=== PATIENT | female | born 1980 | race Caucasian/White ===

== ENCOUNTER 2017-01-06 16:42 | Inpatient (IN) | payer BC, OTHER ==
[2017-01-07] MEDS ORDERED: KETOROLAC TROMETHAMINE 30 MG/ML SOL IV ONE (03:52)
[2017-01-07] MEDS ORDERED: METHYLERGONOVINE MALEATE 0.2 MG/ML SOL IM PRN (04:16)
[2017-01-07] MEDS ORDERED: CARBOPROST 250 MCG/ML SOL IM PRN (04:16)
[2017-01-07] MEDS ORDERED: OXYTOCIN 10000 MU/ML SOL IM PRN (04:16)
[2017-01-07] MEDS ORDERED: MISOPROSTOL 100 MCG TAB VAG PRN (04:19)
[2017-01-07] MEDS ORDERED: ONDANSETRON HCL 4 MG/2 ML SOL IV PRN (04:20)
[2017-01-07] MEDS ORDERED: ONDANSETRON HCL 4 MG/2 ML SOL ONE ×2 (04:27→13:30)
[2017-01-07] MEDS ORDERED: HYDROMORPHONE HCL 2 MG/ML SOL ONE ×4 (04:27→10:20)
[2017-01-07 04:29] LABS: BASOPHILS % (AUTO) 1 % (0-3); EOSINOPHILS % (AUTO) 1 % (0-9); HEMATOCRIT 34 % (35-47); MEAN CORPUSCULAR HGB CONC 33.8 gm/dl (32.0-36.0); MONOCYTES % (AUTO) 4.9 % (0-12); NEUTROPHILS % (AUTO) 84.1 % (37-80)
[2017-01-07 04:34] LABS: CALCIUM 8.4 mg/dl (8.5-10.1); POTASSIUM 3.6 mMol/L (3.5-5.1)
[2017-01-07 04:35] LABS: MEAN CORPUSCULAR VOLUME 78 fL (81-99)
[2017-01-07] MEDS: HYDROMORPHONE 1 MG/ML SYRINGE IV PRN ×3 (04:38→10:24)
[2017-01-07 05:15] LABS: ABO B; RH TYPE Negative
[2017-01-07 05:17] LABS: ANTIBODY SCREEN Negative
[2017-01-07] MEDS ORDERED: HYDROMORPHONE HCL 2 MG/ML SOL IV PRN (05:52)
[2017-01-07] MEDS: SODIUM CHLORIDE 0.9% FLUSH 10 ML SOL IV PRN ×3 (06:11→11:34)
[2017-01-07] MEDS ORDERED: MISOPROSTOL 100 MCG TAB PO PRN ×2 (08:03→09:20)
[2017-01-07] MEDS ORDERED: SODIUM CHLORIDE 0.9% 500 ML 500 ML IV SCH (10:45)
[2017-01-07] MEDS ORDERED: SODIUM CHLORIDE 0.9% 1000ML 1,000 ML IV SCH (11:15)
[2017-01-07] MEDS: FENTANYL 100MCG/2ML SOL IV PRN ×2 (11:31→12:11)
[2017-01-07] MEDS ORDERED: LIDOCAINE HCL 1% MPF SOL ONE (13:30)
[2017-01-07] MEDS ORDERED: FENTANYL 100MCG/2ML SOL ONE (13:30)
[2017-01-07] MEDS ORDERED: PROPOFOL 10 MG/ML EMU IV ONE (13:30)
[2017-01-07] MEDS ORDERED: MIDAZOLAM 2 MG/2 ML SOL ONE (13:36)
[2017-01-07] MEDS ORDERED: DEXAMETHASONE 20 MG/5 ML (4 MG/ML SOL) ONE (14:28)
[2017-01-07] MEDS ORDERED: METOCLOPRAMIDE HYDROCHLORIDE 5 MG/ML SOL ONE (14:28)
[2017-01-07 15:34] VITALS: RESP 16
[2017-01-07 16:59] VITALS: TEMP 97.3
[2017-01-07 18:43] VITALS: BP 134/80; PULSE 78; O2SAT 97
== END 2017-01-07 18:20 | disposition home or self-care (01) | DRG 770 ==
LOC: ED 16:42 → OB 01-07 03:20 → UNDOADMIN 01-07 03:20 → UNDODISIN 01-07 18:20
PROVIDERS: ADMIT Family Medicine; ATTEND Family Medicine
PROC: 3E0P7GC Introduction of Other Therapeutic Substance into Female Reproductive, Via Natural or Artificial Opening (ICD-10-PCS; 2017-01-07)
PROC: 3E033VJ Introduction of Other Hormone into Peripheral Vein, Percutaneous Approach (ICD-10-PCS; 2017-01-07)
PROC: 3E0334Z Introduction of Serum, Toxoid and Vaccine into Peripheral Vein, Percutaneous Approach (ICD-10-PCS; 2017-01-07)
PROC: 10D17ZZ Extraction of Products of Conception, Retained, Via Natural or Artificial Opening (ICD-10-PCS; principal; 2017-01-07 13:45)
DX: O02.1 Missed abortion (principal); O36.0920 Maternal care for other rhesus isoimmunization, second trimester, not applicable or unspecified
CPT/HCPCS: 36415; 80048; 85018; 85025; 86850; 86900; 86901; 99282; 99283; J0330; J1100; J1170; J1885; J2250; J2405; J2765; J3010; J2001; J2704

== ENCOUNTER 2018-03-04 05:37 | Inpatient (IN) | payer OTHER ==
[2018-03-04] MEDS ORDERED: CEFAZOLIN (PREMIX) 1 GM 1 GM/50 ML SOL IV SCH (05:45)
[2018-03-04] MEDS ORDERED: CITRIC ACID/SODIUM CITRATE SOL PO SCH (05:45)
[2018-03-04] MEDS: LACTATED RINGERS 1,000 ML IV SCH ×4 (06:00→16:31)
[2018-03-04] MEDS ORDERED: MORPHINE SULFATE 0.5 MG/ML SOL ONE (07:00)
[2018-03-04] MEDS ORDERED: OXYTOCIN 10000 MU/ML SOL ONE ×4 (07:57)
[2018-03-04] MEDS ORDERED: CEFAZOLIN SODIUM 1 GM PDS ONE ×2 (07:57→13:56)
[2018-03-04] MEDS ORDERED: LACTATED RINGERS 1,000 ML with OXYTOCIN 10000 MU/ML 20 MU IV ONE (08:00)
[2018-03-04] MEDS ORDERED: METHYLERGONOVINE MALEATE 0.2 MG TAB PO PRN (08:56)
[2018-03-04] MEDS ORDERED: ONDANSETRON HCL 4 MG/2 ML SOL IV PRN (08:56)
[2018-03-04] MEDS ORDERED: FLEET ENEMA PR PRN (08:56)
[2018-03-04] MEDS ORDERED: BISACODYL 10 MG SUP PR PRN (08:56)
[2018-03-04] MEDS ORDERED: TEMAZEPAM 15MG 15 MG CAP PO PRN (08:56)
[2018-03-04] MEDS ORDERED: WITCH HAZEL 1 EA PAD TOP PRN (08:56)
[2018-03-04] MEDS ORDERED: BENZOCAINE/MENTHOL 1 SPR TOP PRN (08:56)
[2018-03-04] MEDS: DIPHENHYDRAMINE 25 MG CAP PO PRN ×3 (10:08→17:15)
[2018-03-04] MEDS: DOCUSATE SODIUM 100 MG SGL PO SCH ×2 (10:12→21:16)
[2018-03-04] MEDS: MULTIVITAMIN2 1 EA TAB PO SCH (10:12)
[2018-03-04] MEDS: FOLIC ACID 1 MG TAB PO SCH (10:12)
[2018-03-04] MEDS: KETOROLAC TROMETHAMINE 30 MG/ML SOL IV PRN ×3 (11:00→23:40)
[2018-03-04] MEDS: SODIUM CHLORIDE 0.9% FLUSH 10 ML SOL IV SCH ×2 (11:01→16:32)
[2018-03-04] MEDS ORDERED: CEFAZOLIN SODIUM 1 GM PDS 1 GM in SODIUM CHLORIDE 0.9% 50 ML 50 ML IV SCH (13:30)
[2018-03-04] MEDS: APAP/HYDROCODONE 325/5 TAB PO PRN ×2 (14:39→21:16)
[2018-03-05] MEDS: SODIUM CHLORIDE 0.9% FLUSH 10 ML SOL IV SCH ×5 (01:22→19:31)
[2018-03-05] MEDS: APAP/HYDROCODONE 325/5 TAB PO PRN ×5 (03:55→22:31)
[2018-03-05] MEDS: LACTATED RINGERS 1,000 ML IV SCH ×2 (06:32→21:25)
[2018-03-05] MEDS: KETOROLAC TROMETHAMINE 30 MG/ML SOL IV PRN (06:47)
[2018-03-05] MEDS: MULTIVITAMIN2 1 EA TAB PO SCH (08:46)
[2018-03-05] MEDS: FOLIC ACID 1 MG TAB PO SCH (08:46)
[2018-03-05] MEDS: DOCUSATE SODIUM 100 MG SGL PO SCH ×2 (08:46→21:11)
[2018-03-05 09:14] LABS: ABO B
[2018-03-05 09:15] LABS: RH TYPE Negative
[2018-03-05] MEDS: IBUPROFEN 600 MG TAB PO PRN ×2 (11:27→18:26)
[2018-03-06] MEDS: SODIUM CHLORIDE 0.9% FLUSH 10 ML SOL IV SCH ×2 (01:11→11:57)
[2018-03-06] MEDS: LACTATED RINGERS 1,000 ML IV SCH ×2 (01:12→11:58)
[2018-03-06] MEDS: IBUPROFEN 600 MG TAB PO PRN ×3 (02:23→16:03)
[2018-03-06] MEDS: APAP/HYDROCODONE 325/5 TAB PO PRN ×4 (05:34→21:45)
[2018-03-06] MEDS: DOCUSATE SODIUM 100 MG SGL PO SCH ×2 (08:19→21:41)
[2018-03-06] MEDS: MULTIVITAMIN2 1 EA TAB PO SCH (08:19)
[2018-03-06] MEDS: FOLIC ACID 1 MG TAB PO SCH (08:19)
[2018-03-06] MEDS: FERROUS GLUCONATE 324 MG TABLET PO SCH (12:01)
[2018-03-06] MEDS ORDERED: METOCLOPRAMIDE HYDROCHLORIDE 5 MG TAB ONE (21:39)
[2018-03-06] MEDS: METOCLOPRAMIDE HYDROCHLORIDE 5 MG TAB PO SCH (21:41)
[2018-03-07 00:14] VITALS: RESP 18; TEMP 97.9; O2SAT 95
[2018-03-07] MEDS: IBUPROFEN 600 MG TAB PO PRN (00:15)
[2018-03-07] MEDS: APAP/HYDROCODONE 325/5 TAB PO PRN (06:46)
[2018-03-07] MEDS: MULTIVITAMIN2 1 EA TAB PO SCH (08:14)
[2018-03-07] MEDS: FOLIC ACID 1 MG TAB PO SCH (08:14)
[2018-03-07] MEDS: FERROUS GLUCONATE 324 MG TABLET PO SCH (08:14)
[2018-03-07] MEDS: DOCUSATE SODIUM 100 MG SGL PO SCH (08:14)
[2018-03-07] MEDS ORDERED: METOCLOPRAMIDE HYDROCHLORIDE 5 MG TAB ONE (08:21)
[2018-03-07] MEDS: METOCLOPRAMIDE HYDROCHLORIDE 5 MG TAB PO SCH (08:21)
[2018-03-07 11:09] VITALS: BP 131/78; PULSE 85
== END 2018-03-07 11:05 | disposition home or self-care (01) | DRG 766 ==
LOC: OB 05:37 → PREOBSVTOIN 11:01
PROVIDERS: ADMIT Family Medicine; ATTEND Family Medicine
PROC: 10907ZC Drainage of Amniotic Fluid, Therapeutic from Products of Conception, Via Natural or Artificial Opening (ICD-10-PCS; 2018-03-04)
PROC: 10D00Z1 Extraction of Products of Conception, Low, Open Approach (ICD-10-PCS; principal; 2018-03-04 07:30)
DX: O75.82 Onset (spontaneous) of labor after 37 completed weeks of gestation but before 39 completed weeks gestation, with delivery by (planned) cesarean section (principal); Z37.0 Single live birth; Z3A.39 39 weeks gestation of pregnancy
CPT/HCPCS: 36415; 59025; 82962; 85018; 86900; 86901; 99070; J0690; J1885; J2274; J2590; A9270-GY